=== PATIENT | male | born 1965 | race Caucasian/White ===

== ENCOUNTER → 2018-10-27 | Outpatient (CLI) | payer MEDICAID ==
--- NOTE | 2018-10-27 11:20 | XR ---
Right shoulder HISTORY: Pain, limited range of motion, trauma 3 views of the right shoulder There may be a distal acromial spur, distal acromion is downturned. Pseudocyst suspected within the h umeral head. Right lung apex as visualized is normal. Alignment and joint space maintained. No fractu re or dislocation. IMPRESSION: No acute abnormality. Correlate for possible impingement, shoulder MRI may be of benefit.
== END | disposition home or self-care (01) ==
LOC: RADXRYALE 10:34
PROVIDERS: ATTEND Internal Medicine
DX: M25.511 Pain in right shoulder (principal)